=== PATIENT | female | born 1995 | race African-American/Black ===

== ENCOUNTER 2016-07-10 16:41 | Emergency (ER) | payer BC ==
[~2016-07-10] VITALS: Ht 167.6 cm; Wt 85.0 kg
[2016-07-10 16:45] VITALS: BP 119/57; PULSE 104; RESP 20; TEMP 98.1; O2SAT 96
[2016-07-10] MEDS ORDERED: SODIUM CHLOR 0.9% 1000 ML INJ 1,000 ML IV SCH ×2 (17:28)
[2016-07-10] MEDS ORDERED: SODIUM CHLORIDE 0.9% FLUSH 5 ML FLUSH IVF PRN (17:30)
[2016-07-10] MEDS ORDERED: ONDANSETRON HCL 4 MG/2 ML VIAL IVP ONE (17:30)
--- NOTE | 2016-07-10 17:35 | PD ---
HPI Chief Complaint: GI Complaint Time Seen by Provider: 17:25 Travel History International Travel<30 days: No Contact w/Intl Traveler<30days: No Traveled to known affect area: No History of Present Illness HPI 20-year-old female presents for evaluation nausea, vomiting, diarrhea. Symptoms started this morning. She reports multiple episodes of nonbloody emesis, watery diarrhea today. She reports some abdominal soreness from the vomiting. Denies flank pain, dysuria, vaginal bleeding or discharge, cough or congestion, fevers or chills. No sick contacts. She reports that yesterday evening she ate food at [employer] and she also got a drink at [employer]. She is concerned that the person at [employer] may have poisoned her drink somehow because the patient was rude to the employee at [employer]. She has no other complaints at this time. Her last menstrual period Was June 14. PFSH Past Medical History ?: Not LMP: JUN 14 2016 Past Surgical History Surgical History: No Previous Surgery Social History Alcohol Use: No Tobacco Use: No Substance Use: No Allergies-Medications (Allergen,Severity, Reaction): Coded Allergies: No Known Allergies (Unverified , 07/10/16) Reported Meds & Prescriptions Reported Meds & Active Scripts Active Zofran (Ondansetron HCl) 4 Mg Tab 4 Mg PO Q6HR PRN Review of Systems Except as stated in HPI: all other systems reviewed are Neg Physical Exam Narrative GENERAL: Well-developed well-nourished female in no acute distress SKIN: Warm and dry. HEAD: Atraumatic. Normocephalic. EYES: Pupils equal and round. No scleral icterus. No injection or drainage. ENT: No nasal bleeding or discharge. Mucous membranes pink and moist. NECK: Trachea midline. No JVD. CARDIOVASCULAR: Regular rate and rhythm. No murmur appreciated. RESPIRATORY: No accessory muscle use. Clear to auscultation. Breath sounds equal bilaterally. GASTROINTESTINAL: Abdomen soft, mild periumbilical tenderness to palpation without guarding. There is no right lower quadrant tenderness. There is no rebound tenderness. Negative Esposito's. MUSCULOSKELETAL: No obvious deformities. No edema. No CVA tenderness. NEUROLOGICAL: Awake and alert. No obvious cranial nerve deficits. Motor grossly within normal limits. Normal speech. PSYCHIATRIC: Appropriate mood and affect; insight and judgment normal. Data Data Last Documented VS Vital Signs Date Time Temp Pulse Resp B/P Pulse Ox O2 Delivery O2 Flow Rate FiO2 07/10/16 16:45 98.1 104 20 119/57 96 Room Air Orders Complete Blood Count With Diff (07/10/16 17:28) Comprehensive Metabolic Panel (07/10/16 17:28) Lipase (07/10/16 17:28) Urinalysis - C+S If Indicated (07/10/16 17:28) Iv Access Insert/Monitor (07/10/16 17:28) Ondansetron Inj (Zofran Inj) (07/10/16 17:30) Sodium Chlor 0.9% 1000 Ml Inj (Ns 1000 M (07/10/16 17:28) Sodium Chloride 0.9% Flush (Ns Flush) (07/10/16 17:30) Ed Urine Pregnancytest Poc (07/10/16 17:28) Sodium Chlor 0.9% 1000 Ml Inj (Ns 1000 M (07/10/16 17:28) Ct Abd/Pel W Iv Contrast(Rout) (07/10/16 19:01) Iohexol 350 Inj (Omnipaque 350 Inj) (07/10/16 19:47) Labs Laboratory Tests Test 07/10/16 07/10/16 18:00 18:15 Urine Color YELLOW Urine Turbidity CLOUDY Urine pH 5.5 Urine Specific [place] 1.031 Urine Protein 30 mg/dL Urine Glucose (UA) NEG mg/dL Urine Ketones 40 mg/dL Urine Occult Blood NEG Urine Nitrite NEG Urine Bilirubin NEG Urine Urobilinogen LESS THAN 2.0 MG/DL Urine Leukocyte Esterase NEG Urine RBC 2 /hpf Urine WBC 4 /hpf Urine Squamous Epithelial 4 /hpf Cells Urine Mucus FEW /lpf Microscopic Urinalysis Comment CULT NOT INDICATED White Blood Count 20.0 TH/MM3 Red Blood Count 4.73 MIL/MM3 Hemoglobin 13.7 GM/DL Hematocrit 42.2 % Mean Corpuscular Volume 89.3 FL Mean Corpuscular Hemoglobin 29.0 PG Mean Corpuscular Hemoglobin 32.4 % Concent Red Cell Distribution Width 13.5 % Platelet Count 262 TH/MM3 Mean Platelet Volume 8.6 FL Neutrophils (%) (Auto) 94.7 % Lymphocytes (%) (Auto) 1.4 % Monocytes (%) (Auto) 3.6 % Eosinophils (%) (Auto) 0.1 % Basophils (%) (Auto) 0.2 % Neutrophils # (Auto) 19.0 TH/MM3 Lymphocytes # (Auto) 0.3 TH/MM3 Monocytes # (Auto) 0.7 TH/MM3 Eosinophils # (Auto) 0.0 TH/MM3 Basophils # (Auto) 0.0 TH/MM3 CBC Comment DIFF FINAL Differential Comment Sodium Level 138 MEQ/L Potassium Level 4.4 MEQ/L Chloride Level 108 MEQ/L Carbon Dioxide Level 18.9 MEQ/L Anion Gap 11 MEQ/L Blood Urea Nitrogen 13 MG/DL Creatinine 0.90 MG/DL Estimat Glomerular Filtration 96 ML/MIN Rate Random Glucose 70 MG/DL Calcium Level 8.7 MG/DL Total Bilirubin 0.6 MG/DL Aspartate Amino Transf 12 U/L (AST/SGOT) Alanine Aminotransferase 16 U/L (ALT/SGPT) Alkaline Phosphatase 56 U/L Total Protein 8.5 GM/DL Albumin 4.0 GM/DL Lipase 79 U/L MDM Medical Decision Making Medical Screen Exam Complete: Yes Emergency Medical Condition: Yes Medical Record Reviewed: Yes Interpretation(s) CBC WBC 20 CMP glucose 70 otherwise unremarkable Urinalysis will be ketones, 30 protein otherwise unremarkable Negative urine test CT abdomen pelvisCONCLUSION: Low-grade enteritis with ileus suspected. No perceptible obstruction. No high- grade inflammatory changes. Differential Diagnosis Gastroenteritis, dehydration, electrolyte abnormalities, colitis, appendicitis, biliary colic, Ozzie flavia Dm syndrome, pelvic inflammatory disease Narrative Course 20-year-old female with 1 day of nausea, vomiting or diarrhea. Her abdomen examination is benign. She has very mild periumbilical tenderness to palpation. She describes it as a soreness from vomiting. The plan would be to perform basic lab work, provided IV fluids and Zofran and reassess. The patient's lab work has been reviewed. Her CBC count is 20 with 94% neutrophils could be stress reaction secondary to vomiting but given the leukocytosis and periumbilical abdominal pain, CT of the abdomen and pelvis has been ordered to rule out early appendicitis. CT the abdomen and pelvis reveals enteritis with questionable ileus. The patient was reassured. On examination she reports that the nausea has resolved and she is requesting something to drink as she is quite thirsty. She was given Gatorade and she was able to tolerate it without any problem. Plan is to discharge the patient with antiemetic medication. Diagnosis Primary Impression: Gastroenteritis Departure Forms: Tests/Procedures, Work Release Enter return to work date: Jul 13, 2016 Additional Instructions: Slowly advance diet as tolerated. Medication as needed for nausea. Return for any acutely new or worsening symptoms. Med/Other Pt SpecificInfo: Prescription(s) given Scripts Ondansetron (Zofran)4 Mg Tab4 Mg PO Q6HR PRN (NAUSEA OR VOMITING) #20 TAB Ref 0 Prov:Ambar Raya DO 07/10/16 Disposition: 01 DISCHARGE HOME Condition: Stable Erick Velásquez Jul 10, 2016 17:35
[2016-07-10 18:42] LABS: BASOPHIL % 0.2 % (0.0-2.0); EOSINOPHIL % 0.1 % (0.0-4.0); HEMATOCRIT 42.2 % (35.0-46.0); HEMO FLAGS DIFF FINAL; LYMPH % 1.4 % (9.0-44.0); LYMPHOCYTE # 0.3 TH/MM3 (1.0-4.8); MEAN CELL VOLUME 89.3 FL (80.0-100.0); MEAN CORPUSCULAR HGB CONC 32.4 % (32.0-36.0); MONO % 3.6 % (0.0-8.0); NEUT % 94.7 % (16.0-70.0); PLATELET COUNT 262 TH/MM3 (150-450); RED BLOOD COUNT 4.73 MIL/MM3 (4.00-5.30); RED CELL DISTRIBUTION WIDTH 13.5 % (11.6-17.2)
[2016-07-10 18:55] LABS: ANION GAP 11 MEQ/L (5-15); AST (GOT) 12 U/L (15-37); BICARBONATE 18.9 MEQ/L (21.0-32.0); BLOOD UREA NITROGEN 13 MG/DL (7-18); CHLORIDE 108 MEQ/L (98-107); GLOMERULAR FILTRATION RATE 96 ML/MIN (>89); POTASSIUM 4.4 MEQ/L (3.5-5.1); SODIUM (NA) 138 MEQ/L (136-145)
[2016-07-10 18:58] LABS: ALKALINE PHOSPHATASE 56 U/L (45-117); ALT (GPT) 16 U/L (10-53); TOTAL BILIRUBIN ADULT 0.6 MG/DL (0.2-1.0)
[2016-07-10 19:20] LABS: BLOOD, URINE NEG (NEG); COMMENT (UR) CULT NOT INDICATED; CULTURE IF INDICATED CULT NOT INDICATED; GLUCOSE,URINE NEG (NEG); KETONE, URINE 40 mg/dL (NEG); MUCUS URINE FEW /lpf (OCC); NITRITE,URINE NEG (NEG); PH, URINE 5.5 (5.0-8.5); SQUAMOUS EPITHELIAL CELL URINE 4 /hpf (0-5); URINE COLOR YELLOW (YELLW/STRAW)
[2016-07-10] MEDS ORDERED: IOHEXOL 350 MG/ML 10 ML VIAL (for RAD DIAG) IV ONE (19:47)
--- NOTE | 2016-07-10 20:06 | RADRPT ---
EXAM DATE/TIME: 07/10/2016 19:47 [facility] COMPARISON: No previous studies available for comparison. INDICATIONS : Abdomen pain with vomiting today. IV CONTRAST: 90 cc Omnipaque 350 (iohexol) IV ORAL CONTRAST: No oral contrast ingested. RADIATION DOSE: 9.96 CTDIvol (mGy) MEDICAL HISTORY : None SURGICAL HISTORY : None. ENCOUNTER: Initial ACUITY: 1 day PAIN SCALE: 5/10 LOCATION: Bilateral abdomen. TECHNIQUE: Volumetric scanning of the abdomen and pelvis was performed. Using automated exposure control and ad justment of the mA and/or kV according to patient size, radiation dose was kept as low as reasonably achievable to obtain optimal diagnostic quality images. FINDINGS: LOWER LUNGS: The visualized lower lungs are clear. LIVER: Homogeneous density without lesion. There is no dilation of the biliary tree. No calcified gallston es. SPLEEN: Normal size without lesion. PANCREAS: Within normal limits. KIDNEYS: Normal in size and shape. There is no mass, stone or hydronephrosis. ADRENAL GLANDS: Within normal limits. VASCULAR: There is no aortic aneurysm. BOWEL/MESENTERY: Upper limits of normal caliber fluid filled small bowel loops. There is also small fluid throughout t he colon. Stomach is mildly distended, fluid-filled. No abrupt transitions are demonstrated. No ascit es or free air. No perceptible inflammatory changes. ABDOMINAL WALL: Mild bulging at the level of the umbilicus without a jamee hernia defect. RETROPERITONEUM: There is no lymphadenopathy. BLADDER: No wall thickening or mass. REPRODUCTIVE: Within normal limits. INGUINAL: There is no lymphadenopathy or hernia. MUSCULOSKELETAL: Within normal limits for patient age. CONCLUSION: Low-grade enteritis with ileus suspected. No perceptible obstruction. No high-grade inflammatory caraballo ges. Shade Grace MD on July 10, 2016 at 19:58 Board Certified Radiologist. This report was verified electronically.
[2016-07-10] MEDS ORDERED: ZOFR4TAB PO (20:13)
[2016-07-10 20:37] VITALS: BP 122/60
== END 2016-07-10 21:34 | disposition home or self-care (01) ==
LOC: NEPC 16:41
DX: K52.9 Noninfective gastroenteritis and colitis, unspecified (principal)
CPT/HCPCS: 74177; 80053; 81001; 83690; 84703; 85025; 96374; 99284; J2405; J7030; Q9967

== ENCOUNTER 2016-08-22 23:02 | Emergency (ER) | payer BC ==
[~2016-08-22] VITALS: Ht 172.7 cm; Wt 75.0 kg
[~2016-08-22 23:02] MED LIST: ZOFR4TAB PO
[2016-08-22 23:03] VITALS: BP 126/76; PULSE 79; RESP 16; TEMP 98; O2SAT 100
[2016-08-22] MEDS ORDERED: CEPH-460 PO (23:28)
[2016-08-23] MEDS ORDERED: oxyCODONE/ACETAMINOPHEN 5 MG/325 MG TAB PO ONE (00:30)
[2016-08-23] MEDS ORDERED: PERC5TAB12 PO (01:00)
[2016-08-23] MEDS ORDERED: IBUP-232 PO (01:00)
--- NOTE | 2016-08-23 01:00 | PD ---
HPI Chief Complaint: Skin Problem Time Seen by Provider: 00:18 Travel History International Travel<30 days: No Contact w/Intl Traveler<30days: No Traveled to known affect area: No History of Present Illness HPI Patient is a 20 year old female who presents to ER for pain medication. Reports that she has an abscess to her left butt cheek which her primary care doctor has treated with antibiotics. Patient reports that the abscess is draining and does appear smaller. Reports that "I need something for pain because it hurts when I sit down." Denies fever/chills. No other c/o. PFSH Past Medical History Medical History: Denies Significant Hx Immunizations Current: No ?: Not LMP: LAST WEEK Past Surgical History Surgical History: No Previous Surgery Social History Alcohol Use: Yes (OCCASIONALLY) Tobacco Use: No Substance Use: No Allergies-Medications (Allergen,Severity, Reaction): Coded Allergies: No Known Allergies (Unverified , 08/22/16) Reported Meds & Prescriptions Reported Meds & Active Scripts Active Ibuprofen 600 Mg Tab 600 Mg PO Q6H PRN Percocet (Oxycodone-Acetaminophen) 5-325 mg Tab 1 Tab PO Q6H PRN Reported Keflex (Cephalexin) 500 Mg Cap 500 Mg PO Q8H Review of Systems General / Constitutional: No: Fever, Chills Eyes: No: Visual changes HENT: No: Headaches Cardiovascular: No: Chest Pain or Discomfort Respiratory: No: Shortness of Breath Gastrointestinal: No: Abdominal Pain Genitourinary: No: Dysuria Musculoskeletal: No: Pain Skin: Positive Other (gluteal abscess), No Rash Neurologic: No: Weakness Psychiatric: No: Depression Endocrine: No: Polydipsia Hematologic/Lymphatic: No: Easy Bruising Physical Exam Narrative GENERAL: NAD SKIN: Focused skin assessment warm/dry. HEAD: Atraumatic. Normocephalic. NECK: Trachea midline. No JVD. CARDIOVASCULAR: Regular rate and rhythm. No murmur appreciated. RESPIRATORY: No accessory muscle use. Clear to auscultation. Breath sounds equal bilaterally. GASTROINTESTINAL: Abdomen soft, non-tender, nondistended. Hepatic and splenic margins not palpable. Patient with 0.5cm gluteal abscess to left gluteus - abscess draining, no surrounding cellulitis MUSCULOSKELETAL: No obvious deformities. No clubbing. No cyanosis. No edema. NEUROLOGICAL: Awake and alert.. Normal speech. PSYCHIATRIC: Appropriate mood and affect; insight and judgment normal. Data Data Last Documented VS Vital Signs Date Time Temp Pulse Resp B/P Pulse Ox O2 Delivery O2 Flow Rate FiO2 08/22/16 23:25 16 08/22/16 23:03 98.0 79 126/76 100 Room Air Orders Oxycodone-Acetamin 5-325 Mg (Percocet (08/23/16 00:30) MDM Medical Decision Making Medical Screen Exam Complete: Yes Emergency Medical Condition: Yes Interpretation(s) Vital Signs Date Time Temp Pulse Resp B/P Pulse Ox O2 Delivery O2 Flow Rate FiO2 08/22/16 23:25 16 08/22/16 23:03 98.0 79 16 126/76 100 Room Air Differential Diagnosis gluteal abscess Narrative Course 20 year old female with gluteal abscess. patient reports that she has had this abscess for the past few days, she currently is on keflex for this and reports that her abscess is "getting smaller." Reports that her abscess opened and drained today and now reports pain with sitting down. patient request pain medications as she cannot sit down comfortably. Patient does have 0.5 cm abscess to her left gluteus, it is open and draining. I attempted to further drain patient's abscess, patient refusing to have this abscess drained at this time. Patient reports that abscess has improved and has gotten significant smaller. Patient refuses further interventions on her abscess, only requests pain medications. Patient understands that she may return to the emergency room at any time she want me to perform I&D appropriately. I did inform patient that I would give her lidocaine to numb her skin prior to I&D - patient refused. Symptoms are improving as per patient, there is no surrounding cellulitis, will discharge patient to follow up with pcp. Signs and symptoms of when to return to ER was reviewed with patient in detail She understands need to follow up with her pcp in 48 hours for wound check Diagnosis Primary Impression: Gluteal abscess Additional Impression: Pain Patient Instructions: General Instructions, Narcotic given in the ED Additional Instructions: Complete all antibiotics as prescribed Return to ER if symptoms worsen or persist or if you develop fever/chills Return to ER as needed or if you decide to have abscess drained Med/Other Pt SpecificInfo: Prescription(s) given Scripts Ibuprofen 600 Mg [id number] Mg PO Q6H PRN (Pain/Inflammation) #40 TAB Ref 0 Prov:Ambar Raya DO 08/23/16 Oxycodone-Acetaminophen (Percocet)5-325 mg Tab1 Tab PO Q6H PRN (PAIN) #7 TAB Ref 0 Prov:Ambar Raya DO 08/23/16 Disposition: 01 DISCHARGE HOME Condition: Stable Ambar Raya DO Aug 23, 2016 01:00
== END 2016-08-23 01:11 | disposition home or self-care (01) ==
LOC: NEPD 23:02
DX: L02.31 Cutaneous abscess of buttock (principal)
CPT/HCPCS: 99282

== ENCOUNTER 2017-06-26 18:13 | Emergency (ER) | payer BC ==
[~2017-06-26 18:13] MED LIST changes: +CEPH-460 PO; +IBUP-232 PO; +PERC5TAB12 PO; -ZOFR4TAB PO
[2017-06-26 18:19] VITALS: BP 149/71; PULSE 88; RESP 15; TEMP 99; O2SAT 99
[2017-06-26] MEDS ORDERED: POLY10O EACH EYE (19:29)
--- NOTE | 2017-06-26 19:32 | PD ---
HPI Chief Complaint: Eye Problems/Injury Time Seen by Provider: 19:25 Travel History International Travel<30 days: No Contact w/Intl Traveler<30days: No Traveled to known affect area: No History of Present Illness HPI 21-year-old female presents for evaluation of bilateral eye itching, redness, matting, drainage, burning sensation. Symptoms started this morning. She does not wear contacts. She reports that she recently had cough and cold symptoms which are resolving. Denies any sick contacts or recent travel. She has no other complaints at this time. [facility] Past Medical History Immunizations Current: No ?: Not LMP: 06/10/2017 Social History Alcohol Use: Yes (OCCASIONALLY) Tobacco Use: No Substance Use: No Allergies-Medications (Allergen,Severity, Reaction): Coded Allergies: No Known Allergies (Unverified , 08/22/16) Reported Meds & Prescriptions Reported Meds & Active Scripts Active Polytrim Opth Drops (Polymyxin/Trimethoprim Sulfate) 10,000-0.1 Unit/Ml-% Soln 1 Drop EACH EYE Q6HR 7 Days Ibuprofen 600 Mg Tab 600 Mg PO Q6H PRN Percocet (Oxycodone-Acetaminophen) 5-325 mg Tab 1 Tab PO Q6H PRN Reported Keflex (Cephalexin) 500 Mg Cap 500 Mg PO Q8H Review of Systems General / Constitutional: No: Fever, Chills Eyes: Positive: Drainage, Redness, Tearing, Other (positive for itching, matting), No: Diploplia, Blurred Vision Physical Exam Narrative GENERAL: Well-developed well-nourished female in no acute distress SKIN: Warm and dry. HEAD: Atraumatic. Normocephalic. EYES: Pupils equal and round reactive to light extraocular muscles are intact bilateral conjunctival injection is present. ENT: No nasal bleeding or discharge. Mucous membranes pink and moist. NECK: Trachea midline. No JVD. Data Data Last Documented VS Vital Signs Date Time Temp Pulse Resp B/P (MAP) Pulse Ox O2 Delivery O2 Flow Rate FiO2 06/26/17 18:19 99.0 88 15 149/71 (97) 99 MDM Medical Decision Making Medical Screen Exam Complete: Yes Emergency Medical Condition: Yes Medical Record Reviewed: Yes Differential Diagnosis Viral conjunctivitis versus allergic conjunctivitis versus bacterial conjunctivitis versus iritis Narrative Course Examination is consistent with conjunctivitis. The patient is being discharged with Polytrim ophthalmic solution. Diagnosis Primary Impression: Conjunctivitis Departure Forms: Tests/Procedures, Work Release Enter return to work date: Jun 28, 2017 Additional Instructions: Medication as prescribed. Wash hands frequently. Wash pillow and pillowcase. Return for any emergent medical conditions. Med/Other Pt SpecificInfo: Prescription(s) given Scripts Polymyxin B-Trimethoprim Opth Drops (Polytrim Opth Drops) 10,000-0.1 Unit/Ml-% Soln 1 DROP EACH EYE Q6HR for Mgmt Bacterial Infection for 7 Days, #1 BOTTLE 0 Refills Prov: Wilma Vigil MD 06/26/17 Disposition: 01 DISCHARGE HOME Condition: Stable Erick Velásquez Jun 26, 2017 19:31
== END 2017-06-26 19:45 | disposition home or self-care (01) ==
LOC: NEPK 18:13
DX: H10.9 Unspecified conjunctivitis (principal)
CPT/HCPCS: 99283